=== PATIENT | female | born 1990 | race Caucasian/White ===

== ENCOUNTER 2016-12-11 14:18 | Emergency (ER) | payer OTHER ==
[2016-12-11 14:32] VITALS: BMI 17.9
[2016-12-11] MEDS ORDERED: ONDANSETRON 4 MG/2 ML VIAL IVPUSH ONE (15:14)
[2016-12-11] MEDS ORDERED: SODIUM CHLORIDE 1,000 ML IV STA ×2 (15:14→16:13)
--- NOTE | 2016-12-11 15:20 | PDOC ---
History of Present Illness - General Chief Complaint: Vomiting/Diarrhea Stated Complaint: VOMITING Time Seen by Provider: 12/11/16 14:38 History Source: Patient Exam Limitations: No Limitations - History of Present Illness Travel History: No Initial Comments: 12/11/16 15:59 26-year-old female with history of anxiety and depression presents with intermittent nausea and vomiting without abdominal pain for the past week worsened in the morning after recently starting a medication for anxiety, Paxil. Patient also states has been seen by her PCP just recently did blood work and of September with no acute findings. Patient denies urinary complaints, fever, chills, diarrhea, recent travel, recent illness, or recent change in diet. Timing/Duration: reports: intermittent Quality: reports: mild Aggravating Factors: improves with: None Alleviating Factors: improves with: None Past History - Travel Traveled outside of the country in the last 30 days: Yes - Past Medical History Allergies/Adverse Reactions: Allergies Allergy/AdvReac Type Severity Reaction Status Date / Time No Known Allergies Allergy Verified 12/11/16 14:28 Home Medications: Ambulatory Orders Paroxetine HCl 10 mg PO DAILY 12/11/16 Asthma: Yes Psychiatric Problems: Yes (ANXIETY/depression) Thyroid Disease: Yes Other medical history: sciatica - Psycho/Social/Smoking Cessation Hx Anxiety: Yes Suicidal Ideation: No Smoking History: Never smoked Have you smoked in the past 12 months: No Number of Cigarettes Smoked Daily: 4 Information on smoking cessation initiated: Yes 'Breaking Loose' booklet given: 12/11/16 Hx Alcohol Use: No Drug/Substance Use Hx: No Substance Use Type: Marijuana Patient Lives Alone: No Lives with/in: spouse/SO Review of Systems - Review of Systems Able to Perform ROS?: Yes Constitutional: No: Symptoms Reported HEENTM: No: Symptoms Reported Respiratory: No: Symptoms reported Cardiac (ROS): No: Symptoms Reported ABD/GI: Yes: Nausea, Poor Appetite, Poor Fluid Intake, Vomiting. No: Abdominal cramping : No: Symptoms Reported Musculoskeletal: No: Symptoms Reported Integumentary: No: Symptoms Reported Neurological: No: Symptoms reported Endocrine: No: Symptoms Reported *Physical Exam - Vital Signs Last Vital Signs Temp Pulse Resp BP Pulse Ox 98.1 F 71 18 123/88 100 12/11/16 14:28 12/11/16 14:28 12/11/16 14:28 12/11/16 14:28 12/11/16 14:28 - Physical Exam General Appearance: Yes: Nourished, Appropriately Dressed. No: Apparent Distress HEENT: negative: Pale Conjunctivae Neck: positive: Supple Respiratory/Chest: positive: Lungs Clear, Normal Breath Sounds. negative: Respiratory Distress, Accessory Muscle Use Cardiovascular: positive: Regular Rhythm, Regular Rate. negative: Murmur Gastrointestinal/Abdominal: positive: Soft. negative: Tenderness Musculoskeletal: negative: CVA Tenderness Integumentary: positive: Normal Color, Warm, Moist Neurologic: positive: Motor Strength 5/5 (ambulatory) ED Treatment Course - LABORATORY CBC & Chemistry Diagram: 12/11/16 15:37 12/11/16 15:37 Medical Decision Making - Medical Decision Making 12/11/16 16:13 Patient with intermittent nausea and vomiting since last week without abdominal pain fever or chills. Patient states symptoms began after taking her Paxil which she states does cause nausea in the morning but only has had 2 days of vomiting. Patient states takes the Paxil at night for anxiety/depression. Patient on exam had no acute findings. Patient was ordered for labs, antiemetics , IV fluids, urine urine . Patient also ordered for magnesium and lipase. 12/11/16 17:32 Laboratory Tests 12/11/16 12/11/16 12/11/16 15:37 15:37 15:37 WBC 5.8 Hgb 13.5 Hct 39.6 Plt Count 188 Neutrophils % 66.0 Sodium 137 Potassium 3.9 Chloride 102 Carbon Dioxide 25 Anion Gap 10 BUN 15 Creatinine 0.7 Random Glucose 70 L Calcium 9.1 Magnesium 2.0 ALT 13 Alkaline Phosphatase 52 Urine Ketones 2+ H Urine Nitrite Negative Ur Leukocyte Esterase Negative Urine HCG, Qual Negative Patient ordered for second bag of IV fluids dictating D5NS wide open. Patient also states feeling much better with no complaints presently. Patient be discharged home with Zofran and recommended to stop the Paxil. Patient also requesting a GI referral secondary to poor appetite and early satiety. *DC/Admit/Observation/Transfer Diagnosis at time of Disposition: Nausea and vomiting Qualifiers: Vomiting type: unspecified Vomiting Intractability: unspecified Qualified Code( s): R11.2 - Nausea with vomiting, unspecified - Discharge Dispostion Disposition: HOME Condition at time of disposition: Improved - Referrals Referrals: Adilene Bose MD [Staff Physician] - - Patient Instructions Printed Discharge Instructions: DI for Nausea -- Adult, DI for Vomiting -- Adult, DI for Poor Appetite Additional Instructions: At this point I do recommend stopping the Paxil and notifying a psychiatrist of the above symptoms after taking the Paxil . I also recommended small frequent meals adding Zofran as needed for nausea. I have also given a referral to Dr. Bose ,surface plate finisher to discuss your poor appetite and early satiety
[2016-12-11] MEDS ORDERED: ONDANSETRON 4 MG/2 ML VIAL ONE (15:23)
[2016-12-11 15:42] LABS: BASOPHIL 0.4 % (0-2.0); EOSINOPHIL 0.1 % (0-4.5); MCH 30.5 pg (25.7-33.7); MCHC 34.2 g/dl (32.0-36.0); MEAN CELL VOLUME 89.3 fl (80-96); PLATELET COUNT 188 K/MM3 (134-434); RDW 13.1 % (11.6-15.6); WHITE BLOOD COUNT 5.8 K/mm3 (4.0-10.0)
[2016-12-11 15:58] LABS: URINE APPEARANCE SLCLOUDY; URINE BILIRUBIN NEGATIVE (NEGATIVE); URINE BLOOD NEGATIVE (NEGATIVE); URINE COLOR YELLOW; URINE GLUCOSE (UA) NEGATIVE (NEGATIVE); URINE KETONE 2+ (NEGATIVE); URINE LEUK ESTERASE NEGATIVE (NEGATIVE); URINE NITRITE NEGATIVE (NEGATIVE); URINE PROTEIN NEGATIVE (NEGATIVE); URINE UROBILINOGEN NEGATIVE mg/dL (0.2-1.0)
[2016-12-11 16:11] LABS: ALBUMIN 4.2 g/dl (3.4-5.0); ANION GAP 10 (8-16); CALCIUM 9.1 mg/dL (8.5-10.1); CO2 25 mmol/L (21-32); CREATININE 0.7 mg/dL (0.55-1.02); GLUCOSE,RANDOM 70 mg/dL (74-106); SGOT/AST 11 U/L (15-37); SGPT/ALT 13 U/L (12-78)
[2016-12-11 16:13] LABS: ALK PHOS 52 U/L (45-117); TOT PROT 7.3 g/dl (6.4-8.2)
[2016-12-11] MEDS ORDERED: DEXTROSE 5%-NORMAL SALINE 1,000 ML IV SCH (16:45)
[2016-12-11 17:51] VITALS: BP 113/77; PULSE 69; TEMP 98
== END 2016-12-11 17:51 | disposition home or self-care (01) ==
LOC: JER 14:18
PROC: 3E0337Z Introduction of Electrolytic and Water Balance Substance into Peripheral Vein, Percutaneous Approach (ICD-10-PCS; principal; 2016-12-11)
PROC: 3E033GC Introduction of Other Therapeutic Substance into Peripheral Vein, Percutaneous Approach (ICD-10-PCS; 2016-12-11)
DX: R11.2 Nausea with vomiting, unspecified (principal); F41.8 Other specified anxiety disorders
CPT/HCPCS: 36415; 80053; 81003; 83690; 83735; 84703; 85025; 96361; 96374; 99283-25

== ENCOUNTER 2018-05-28 11:03 | Emergency (ER) | payer OTHER ==
[2018-05-28 11:15] VITALS: BP 98/65; PULSE 77; TEMP 97.6; BMI 18.3
[2018-05-28] MEDS ORDERED: PANTOPRAZOLE SODIUM 40 MG in SODIUM CHLORIDE 100 ML IVPB ONE (11:40)
[2018-05-28] MEDS ORDERED: ONDANSETRON 4 MG/2 ML VIAL IVPUSH ONE (11:40)
[2018-05-28] MEDS ORDERED: SODIUM CHLORIDE 1,000 ML IV STA (11:42)
[2018-05-28] MEDS ORDERED: KETOROLAC TROMETHAMINE 30 MG/1 ML VIAL IVPUSH STA (11:42)
[2018-05-28 12:23] LABS: URINE APPEARANCE CLEAR; URINE BILIRUBIN NEGATIVE (<2.0 mg/dL); URINE COLOR YELLOW; URINE GLUCOSE (UA) NEGATIVE (NEGATIVE); URINE KETONE NEGATIVE (NEGATIVE); URINE LEUK ESTERASE NEGATIVE (NEGATIVE); URINE NITRITE NEGATIVE (NEGATIVE); URINE PROTEIN NEGATIVE (NEGATIVE); URINE UROBILINOGEN NEGATIVE mg/dL (0.2-1.0)
[2018-05-28 12:25] LABS: HCG,QUALITATIVE URINE Negative
[2018-05-28] MEDS ORDERED: KETOROLAC TROMETHAMINE 30 MG/1 ML VIAL ONE (12:30)
[2018-05-28] MEDS ORDERED: ONDANSETRON 4 MG/2 ML VIAL ONE (12:30)
[2018-05-28] MEDS ORDERED: PANTOPRAZOLE SODIUM 0 MG/0 ML BAG IVPB ONE (12:30)
[2018-05-28] MEDS ORDERED: PANTOPRAZOLE SODIUM 40 MG/100 ML BAG IVPB ONE (12:31)
[2018-05-28 12:48] LABS: BASO % 0.3 % (0-2.0); EOS % 0.1 % (0-4.5); HEMATOCRIT 40.3 % (32.4-45.2); HEMOGLOBIN 13.9 GM/dL (10.7-15.3); LYMPH % 8.3 % (8-40); MCH 31.8 pg (25.7-33.7); MCHC 34.5 g/dl (32.0-36.0); MEAN CELL VOLUME 92.2 fl (80-96); MEAN PLT VOLUME 8.9 fl (7.5-11.1); MONO % 7.7 % (3.8-10.2); NEUT % 83.6 % (42.8-82.8); PLATELET COUNT 175 K/MM3 (134-434); RBC 4.37 M/mm3 (3.60-5.2); RDW 12.9 % (11.6-15.6); WHITE BLOOD COUNT 6.7 K/mm3 (4.0-10.0)
[2018-05-28 13:17] LABS: ALBUMIN 3.8 g/dl (3.4-5.0); ALK PHOS 66 U/L (45-117); ANION GAP 2 MMOL/L (8-16); BILIRUBIN,TOTAL 0.6 mg/dL (0.2-1); BLOOD UREA NITROGEN 17 mg/dL (7-18); CALCIUM 8.8 mg/dL (8.5-10.1); CHLORIDE 106 mmol/L (98-107); CO2 29 mmol/L (21-32); CREATININE 0.7 mg/dL (0.55-1.3); GLUCOSE,RANDOM 78 mg/dL (74-106); LIPASE 81 U/L (73-393); MAGNESIUM 2.2 mg/dL (1.8-2.4); POTASSIUM 4.6 mmol/L (3.5-5.1); SGOT/AST 25 U/L (15-37); SGPT/ALT 15 U/L (13-61); SODIUM 137 mmol/L (136-145); TOT PROT 7.5 g/dl (6.4-8.2)
--- NOTE | 2018-05-28 13:19 | PDOC ---
History of Present Illness - General Chief Complaint: Nausea/Vomiting Stated Complaint: ABD PAIN/VOMITING Time Seen by Provider: 05/28/18 11:32 History Source: Patient Exam Limitations: No Limitations - History of Present Illness Initial Comments: 05/28/18 12:17 28-year-old female presents to the emergency room for evaluation of mid abdominal pain causing her nausea vomiting and diarrhea without fever, chills. Patient states essentially she eat something the pain increases along with the feeling of nausea. Patient has no urinary complaints, vaginal complaints irregular menses but states history of H. pylori last year which was diagnosed after receiving endoscopy and took the medication as prescribed which resolved the symptoms. Patient states similar pain and location to her previous H. pylori exacerbation. Timing/Duration: intermittent Severity: mild Associated Symptoms: reports: nausea/vomiting, weakness (mild) Past History - Travel Traveled outside of the country in the last 30 days: No Close contact w/someone who was outside of country & ill: No - Past Medical History Allergies/Adverse Reactions: Allergies Allergy/AdvReac Type Severity Reaction Status Date / Time No Known Allergies Allergy Verified 05/28/18 11:15 Home Medications: Ambulatory Orders Ondansetron HCl [Zofran] 4 mg PO TID PRN #12 tablet 12/11/16 Paroxetine HCl 10 mg PO DAILY 12/11/16 Asthma: Yes COPD: No GI Disorders: Yes (h pylori) Psychiatric Problems: Yes (ANXIETY/depression) Thyroid Disease: Yes - Suicide/Smoking/Psychosocial Hx Smoking History: Never smoked Have you smoked in the past 12 months: No Number of Cigarettes Smoked Daily: 4 'Breaking Loose' booklet given: 12/11/16 Hx Alcohol Use: No Drug/Substance Use Hx: No Substance Use Type: Marijuana Patient Lives Alone: No Lives with/in: spouse/SO Review of Systems - Review of Systems Constitutional: Yes: Weakness HEENTM: No: Symptoms Reported Respiratory: No: Symptoms reported Cardiac (ROS): No: Symptoms Reported ABD/GI: Yes: Diarrhea, Nausea, Vomiting, Abdominal cramping : No: Symptoms Reported Musculoskeletal: No: Symptoms Reported Integumentary: No: Symptoms Reported Neurological: No: Symptoms reported Endocrine: No: Symptoms Reported Hematologic/Lymphatic: No: Symptoms Reported *Physical Exam - Vital Signs Last Vital Signs Temp Pulse Resp BP Pulse Ox 97.6 F 77 18 98/65 98 05/28/18 11:12 05/28/18 11:12 05/28/18 11:12 05/28/18 11:12 05/28/18 11:12 - Physical Exam General Appearance: Yes: Nourished, Appropriately Dressed. No: Apparent Distress HEENT: positive: Pharynx Normal (dry). negative: Pale Conjunctivae Neck: positive: Supple. negative: Lymphadenopathy (R), Lymphadenopathy (L) Respiratory/Chest: positive: Lungs Clear, Normal Breath Sounds. negative: Respiratory Distress, Accessory Muscle Use Cardiovascular: positive: Regular Rhythm, Regular Rate. negative: Murmur Gastrointestinal/Abdominal: positive: Soft, Tenderness (upper periumbilical) Extremity: positive: Normal Capillary Refill Integumentary: positive: Normal Color, Warm, Moist Neurologic: positive: Motor Strength 5/5 (ambulatory) Moderate Sedation - Procedure Monitoring Vital Signs: Procedure Monitoring Vital Signs Temperature 97.6 F 05/28/18 11:12 Pulse Rate 77 05/28/18 11:12 Respiratory Rate 18 05/28/18 11:12 Blood Pressure 98/65 05/28/18 11:12 O2 Sat by Pulse Oximetry (%) 98 05/28/18 11:12 ED Treatment Course - LABORATORY CBC & Chemistry Diagram: 05/28/18 12:30 05/28/18 12:30 - ADDITIONAL ORDERS Additional order review: Laboratory Results 05/28/18 11:55 Urine Color Yellow Urine Appearance Clear Urine pH 6.[address] 1.025 Urine Protein Negative Urine Glucose (UA) Negative Urine Ketones Negative Urine Blood Negative Urine Nitrite Negative Urine Bilirubin Negative Urine Urobilinogen Negative Ur Leukocyte Esterase Negative Urine HCG, Qual Negative 05/28/18 12:30 RBC 4.37 MCV 92.2 MCHC 34.5 RDW 12.9 MPV 8.9 Neutrophils % 83.6 H D Lymphocytes % 8.3 D Monocytes % 7.7 Eosinophils % 0.1 Basophils % 0.3 - Medications Given in the ED: ED Medications Discontinued Medications Generic Name Dose Route Start Last Admin Trade Name Freq PRN Reason Stop Dose Admin Pantoprazole Sodium 40 mg/ 100 mls @ 200 mls/hr 05/28/18 11:40 05/28/18 12:44 Sodium Chloride IVPB 05/28/18 12:09 200 mls/hr ONCE ONE Administration Sodium Chloride 1,000 mls @ 1,000 mls/hr 05/28/18 11:42 05/28/18 12:44 Normal Saline - IV 05/28/18 12:41 1,000 mls/hr ASDIR STA Administration Ketorolac Tromethamine 30 mg 05/28/18 11:42 05/28/18 12:44 Toradol Injection - IVPUSH 05/28/18 11:43 30 mg ONCE STA Administration Ondansetron HCl 4 mg 05/28/18 11:40 05/28/18 12:44 Zofran Injection IVPUSH 05/28/18 11:41 4 mg ONCE ONE Administration Medical Decision Making - Medical Decision Making 05/28/18 12:36 Plan:. Patient with nausea vomiting and diarrhea for the past 2 weeks associated with upper periumbilical pain. Patient states is an H. pylori with similar signs and symptoms. Exam. Patient with upper periumbilical tenderness and. Dry exam. Plan. Labs, urine, Protonix, Toradol and IV fluids. 05/28/18 13:37 Laboratory Tests 05/28/18 05/28/18 05/28/18 11:55 12:30 12:30 WBC 6.7 Hgb 13.9 Hct 40.3 Neutrophils % 83.6 H D Sodium 137 Potassium 4.6 Chloride 106 Carbon Dioxide 29 Anion Gap 2 L BUN 17 Creatinine 0.7 Random Glucose 78 Calcium 8.8 Magnesium 2.2 Total Bilirubin 0.6 AST 25 ALT 15 Urine Color Yellow Urine Appearance Clear Urine Ketones Negative Urine Nitrite Negative Urine HCG, Qual Negative 05/28/18 13:41 Pt states feeling better. Will give prescription for Zofran along with a referral to [facility]. *DC/Admit/Observation/Transfer Diagnosis at time of Disposition: Nausea and vomiting - Discharge Dispostion Disposition: HOME Condition at time of disposition: Improved - Referrals Referrals: ON STAFF,NOT [Primary Care Provider] - Gary Isidro MD [Staff Physician] - - Patient Instructions Printed Discharge Instructions: DI for Vomiting -- Adult Additional Instructions: Please continue to follow-up bland diet avoiding spicy greasy foods. Please take Zofran as needed for nausea. Please also follow up with referred [facility]il[facility]. - Post Discharge Activity
== END 2018-05-28 13:59 | disposition home or self-care (01) ==
LOC: JER 11:03
PROC: 3E033GC Introduction of Other Therapeutic Substance into Peripheral Vein, Percutaneous Approach (ICD-10-PCS; principal; 2018-05-28)
PROC: 3E033GC Introduction of Other Therapeutic Substance into Peripheral Vein, Percutaneous Approach (ICD-10-PCS; 2018-05-28)
PROC: 3E0333Z Introduction of Anti-inflammatory into Peripheral Vein, Percutaneous Approach (ICD-10-PCS; 2018-05-28)
DX: R11.2 Nausea with vomiting, unspecified (principal)
CPT/HCPCS: 36415; 80053; 81003; 83690; 83735; 84703; 85025; 96365; 96375; 99281-25; J7030

== ENCOUNTER 2022-11-07 11:32 | Emergency (ER) | payer OTHER ==
[2022-11-07 11:41] VITALS: BP 94/63; PULSE 79; RESP 18; TEMP 98.4; BMI 20.2
== END 2022-11-07 14:25 | disposition left against medical advice (07) ==
LOC: JER 11:32
DX: R10.9 Unspecified abdominal pain (principal); R11.10 Vomiting, unspecified
CPT/HCPCS: 99281-25

== ENCOUNTER 2023-12-25 12:58 | Emergency (ER) | payer OTHER ==
[2023-12-25 13:15] VITALS: TEMP 98; BMI 19.0
[2023-12-25] MEDS: SODIUM CHLORIDE 0.9% 500 ML INFUS.BAG IV ONE (14:40)
[2023-12-25 14:56] LABS: BASO % 0.4 % (0-2.0); EOS % 0.1 % (0-4.5); HEMATOCRIT 39.6 % (32.4-45.2); HEMOGLOBIN 13.3 GM/dL (10.7-15.3); MCH 30.3 pg (25.7-33.7); MCHC 33.6 g/dl (32.0-36.0); MEAN CELL VOLUME 90.2 fl (80-96); MEAN PLT VOLUME 8.9 fl (7.5-11.1); MONO % 7.6 % (3.8-10.2); NEUT % 69.9 % (42.8-82.8); PLATELET COUNT 224 10^3/uL (134-434); RBC 4.39 M/mm3 (3.60-5.2); RDW 13.5 % (11.6-15.6); WHITE BLOOD COUNT 7.6 K/mm3 (4.0-10.0)
[2023-12-25 15:00] LABS: EPI CELLS 30 /uL (0-25.1); HYALINE CASTS 1 /uL (0-3.1); PH,URINE 5.5 (5.0-8.0); URINE APPEARANCE CLEAR; URINE BACTERIA 517 /uL (0-1359); URINE BILIRUBIN NEGATIVE (NEGATIVE); URINE COLOR YELLOW; URINE GLUCOSE (UA) NEGATIVE (NEGATIVE); URINE KETONE NEGATIVE (NEGATIVE); URINE LEUK ESTERASE NEGATIVE (NEGATIVE); URINE NITRITE NEGATIVE (NEGATIVE); URINE PROTEIN TRACE (NEGATIVE); URINE RBC 31 /uL (0-23.9); URINE UROBILINOGEN 0.2 mg/dL (0.2-1.0); URINE WBC 6 /uL (0-25.8)
[2023-12-25 15:03] LABS: HCG,QUALITATIVE URINE NEGATIVE
[2023-12-25 15:34] LABS: POTASSIUM 4.3 mmol/L (3.5-5.1)
[2023-12-25 15:36] LABS: CALCIUM 9.6 mg/dL (8.5-10.1)
[2023-12-25 15:37] LABS: ALBUMIN 4.3 g/dl (3.4-5.0); BLOOD UREA NITROGEN 18.2 mg/dL (7-18); MAGNESIUM 2.2 mg/dL (1.8-2.4)
[2023-12-25 15:40] LABS: CREATININE 0.8 mg/dL (0.55-1.3)
[2023-12-25 15:41] LABS: BILIRUBIN,TOTAL 0.6 mg/dL (0.2-1); TOT PROT 7.9 g/dl (6.4-8.2)
[2023-12-25 16:31] LABS: HIV INTERPRETATION NEGATIVE (NEGATIVE)
[2023-12-25 17:26] VITALS: BP 137/79; PULSE 70; RESP 16
== END 2023-12-25 17:30 | disposition home or self-care (01) ==
LOC: JER 12:58
DX: R25.1 Tremor, unspecified (principal)
CPT/HCPCS: 36415; 80053; 81003; 83735; 84443; 84484; 84703; 85025; 86780; 86803; 87086; 87389; 87491; 87591; 93005; 93010; 99284-25